=== PATIENT | male | born 1955 | race Caucasian/White ===

== ENCOUNTER 2021-02-02 11:34 | Outpatient (CLI) | payer BC | END 2021-02-02 11:35 | disposition home or self-care (01) | LOC: BURRAD 11:34 | PROVIDERS: ATTEND Nurse Practitioner Family | DX: M25.562 Pain in left knee (principal); M25.561 Pain in right knee; R05 Cough; M17.0 Bilateral primary osteoarthritis of knee | CPT/HCPCS: 71046 ==